=== PATIENT | male | born 1990 | race Hispanic/Latino ===

== ENCOUNTER → 2016-07-04 | Outpatient (REF) | payer OTHER | LOC: M SMT 13:06 | PROVIDERS: ATTEND Nurse Practitioner Women's Health | DX: N50.819 Testicular pain, unspecified (principal) ==

== ENCOUNTER 2016-09-08 04:55 | Emergency (ER) | payer OTHER ==
[~2016-09-08] VITALS: Ht 175.3 cm; Wt 93.0 kg
[2016-09-08 05:07] VITALS: BP 183/123
[2016-09-08] MEDS ORDERED: IBUP80TA PO (05:12)
[2016-09-08] MEDS ORDERED: PERCOCET 5MG/325MG TAB PO ONE (07:00)
[2016-09-08] MEDS ORDERED: KETOROLAC 60 MG/2 ML VIAL (J1885) IM ONE (07:00)
[2016-09-08] MEDS ORDERED: MOBI7.5T10 PO (07:04)
[2016-09-08] MEDS ORDERED: ZANA4TAB PO (07:04)
== END 2016-09-08 07:32 | disposition home or self-care (01) ==
LOC: M ED 06:14
DX: M25.511 Pain in right shoulder (principal); M25.512 Pain in left shoulder
CPT/HCPCS: 96372; 99282; J1885